=== PATIENT | male | born 1950 | race American Indian/Alaskan Native ===

== ENCOUNTER 2017-02-16 10:37 | Emergency (ER) | payer MEDICARE ==
[2017-02-16 11:15] VITALS: BP 166/71
--- NOTE | 2017-02-16 12:52 | Emergency Department Report ---
ED Upper Extremity Inj HPI - General Chief Complaint: Extremity Injury, Upper Stated Complaint: RIGHT ARM SWOLLEN Time Seen by Provider: 02/16/17 12:10 Source: patient Mode of arrival: Ambulatory Limitations: No Limitations - History of Present Illness Initial Comments: This is a 66-year-old male nontoxic, well nourished in appearance, no acute signs of distress presents to the ED complaining of chronic intermittent right wrist pain. Patient stated he was diagnosed with Gout and has been treated with steroids and Naproxen with relief. Patient today presents with same symptoms. Patient denies any trauma to the region. Patient denies any numbness, tingling , fever, vomiting, chest pain, shortness of breath, headache, stiff neck, abdominal pain. Denies any allergies. Medical history includes arthritis and gout. MD Complaint: Injury to:: right, wrist -: year(s) Other Extremity Injury: Wrist: Right Other Injuries: none Severity scale (0 -10): 6 Improves With: none Worsens With: none Associated Symptoms: denies other symptoms. denies: weakness, numbness, neck pain, suspects foreign body, nausea/vomiting, heard/felt popping sensat - Related Data Previous Rx's Medication Instructions Recorded Last Taken Type Levofloxacin [Levaquin] 750 mg PO QDAY #7 tablet 07/15/14 Unknown Rx oxyCODONE [Roxicodone TAB] 5 mg PO Q6H PRN #20 tablet 07/15/14 Unknown Rx Cyclobenzaprine [Flexeril] 10 mg PO TID PRN #20 tablet 11/04/15 Unknown Rx Naproxen [Naprosyn TAB] 375 mg PO BID #30 tablet 11/04/15 Unknown Rx Naproxen [Naprosyn TAB] 500 mg PO BID PRN #30 tablet 02/16/17 Unknown Rx predniSONE [Deltasone] 40 mg PO QDAY #5 tab 02/16/17 Unknown Rx Allergies Allergy/AdvReac Type Severity Reaction Status Date / Time No Known Allergies Allergy Verified 07/15/14 11:31 ED Review of Systems ROS: Stated complaint: RIGHT ARM SWOLLEN Other details as noted in HPI Constitutional: denies: chills, fever Eyes: denies: eye pain, eye discharge, vision change ENT: denies: ear pain, throat pain Respiratory: denies: cough, shortness of breath, wheezing Cardiovascular: denies: chest pain, palpitations Endocrine: no symptoms reported Gastrointestinal: denies: abdominal pain, nausea, diarrhea Genitourinary: denies: urgency, dysuria Musculoskeletal: denies: back pain, joint swelling, arthralgia Skin: denies: rash, lesions Neurological: denies: headache, weakness, paresthesias Psychiatric: denies: anxiety, depression Hematological/Lymphatic: denies: easy bleeding, easy bruising ED Past Medical Hx - Past Medical History Previous Medical History?: Yes Hx Arthritis: Yes Additional medical history: gout, carpel tunnel - Surgical History Past Surgical History?: No - Social History Smoking Status: Current Every Day Smoker Substance Use Type: Alcohol - Medications Home Medications: Home Medications Medication Instructions Recorded Confirmed Last Taken Type Levofloxacin [Levaquin] 750 mg PO QDAY #7 tablet 07/15/14 Unknown Rx oxyCODONE [Roxicodone TAB] 5 mg PO Q6H PRN #20 tablet 07/15/14 Unknown Rx Cyclobenzaprine [Flexeril] 10 mg PO TID PRN #20 tablet 11/04/15 Unknown Rx Naproxen [Naprosyn TAB] 375 mg PO BID #30 tablet 11/04/15 Unknown Rx Naproxen [Naprosyn TAB] 500 mg PO BID PRN #30 tablet 02/16/17 Unknown Rx predniSONE [Deltasone] 40 mg PO QDAY #5 tab 02/16/17 Unknown Rx ED Physical Exam - General Limitations: No Limitations General appearance: alert, in no apparent distress - Head Head exam: Present: atraumatic, normocephalic, normal inspection - Eye Eye exam: Present: normal appearance, PERRL, EOMI. Absent: scleral icterus, conjunctival injection, nystagmus, periorbital swelling, periorbital tenderness Pupils: Present: normal accommodation - ENT ENT exam: Present: normal exam, normal orophraynx, mucous membranes moist, TM's normal bilaterally, normal external ear exam - Neck Neck exam: Present: normal inspection, full ROM. Absent: tenderness, meningismus, lymphadenopathy, thyromegaly - Respiratory Respiratory exam: Present: normal lung sounds bilaterally. Absent: respiratory distress, wheezes, rales, rhonchi, stridor, chest wall tenderness, accessory muscle use, decreased breath sounds, prolonged expiratory - Cardiovascular Cardiovascular Exam: Present: regular rate, normal rhythm, normal heart sounds. Absent: bradycardia, tachycardia, irregular rhythm, systolic murmur, diastolic murmur, rubs, gallop - GI/Abdominal GI/Abdominal exam: Present: soft, normal bowel sounds. Absent: distended, tenderness, guarding, rebound, rigid, diminished bowel sounds - Rectal Rectal exam: Present: deferred - Extremities Exam Extremities exam: Present: normal inspection, full ROM, tenderness, normal capillary refill. Absent: pedal edema, joint swelling, calf tenderness - Expanded Upper Extremity Exam Right General: Present: normal inspection Shoulder Exam: Present: normal inspection, full ROM Upper Arm exam: Present: normal inspection, full ROM Elbow exam: Present: normal inspection, full ROM Forearm Wrist exam: Present: normal inspection, full ROM Hand Wrist exam: Present: normal inspection, full ROM, tenderness, swelling. Absent: abrasion, laceration, ecchymosis, deformity, crepidus, dislocation, erythema, amputation, nail avulsion, subungual hematoma Hand L/R Back: 1 - swelling and tenderness Neuro motor exam: Present: wrist extension intact, thumb opposition intact, thumb IP flexion intact, thumb adduction intact, fingers 2-5 abduction intact Neurosensory exam: Present: 2-point discrimination, radial nerve intact, ulnar nerve intact, median nerve intact Vascular: Present: vascular compromise, normal capillary refill, radial pulse, brachial pulse, ulnar pulse - Back Exam Back exam: Present: normal inspection, full ROM. Absent: tenderness, CVA tenderness (R), CVA tenderness (L), muscle spasm, paraspinal tenderness, vertebral tenderness, rash noted - Neurological Exam Neurological exam: Present: alert, oriented X3, CN II-XII intact, normal gait, reflexes normal - Psychiatric Psychiatric exam: Present: normal affect, normal mood - Skin Skin exam: Present: warm, dry, intact, normal color. Absent: rash ED Course Vital Signs 02/16/17 11:09 Temperature 98.4 F Pulse Rate 93 H Respiratory 18 Rate Blood Pressure 166/71 O2 Sat by Pulse 99 Oximetry - Reevaluation(s) Reevaluation #1: 02/16/17 12:56 Patient is speaking in full sentences with no signs of distress noted. ED Medical Decision Making - Medical Decision Making This is a 66-year-old male that presents with gout exacerbation. Patient received Solu-Medrol and ibuprofen ED. Patient discharged with naproxen and prednisone. Patient is stable. Patient was instructed to follow-up with a primary care doctor in 3-5 days or if symptoms worsen and continue return to emergency room as soon as possible possible. At time time of discharge, the patient does not seem toxic or ill in appearance. No acute signs of distress noted. Patient agrees to discharge treatment plan of care. No further questions noted by the patient. Critical care attestation.: If time is entered above; I have spent that time in minutes in the direct care of this critically ill patient, excluding procedure time. 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 Prescriptions: Naproxen [Naprosyn TAB] 500 mg PO BID PRN #30 tablet PRN Reason: Pain predniSONE [Deltasone] 40 mg PO QDAY #5 tab Referrals: ANTHONY TILLEY MD [Primary Care Provider] - 3-5 Days JENNI SHRESTHA MD [Staff Physician] - 3-5 Days [facility] [Outside] - 3-5 Days [facility] [Outside] - 3-5 Days Forms: Work/School Release Form(ED)
[2017-02-16] MEDS ORDERED: MOTRIN PO ONE (12:54)
== END 2017-02-16 13:11 | disposition home or self-care (01) ==
LOC: ED 10:37
DX: M1A.0310 Idiopathic chronic gout, right wrist, without tophus (tophi) (principal); M19.90 Unspecified osteoarthritis, unspecified site; M10.9 Gout, unspecified; F17.200 Nicotine dependence, unspecified, uncomplicated
CPT/HCPCS: 96372; 99282; J2930

== ENCOUNTER 2017-06-09 11:33 | Emergency (ER) | payer MEDICARE ==
--- NOTE | 2017-06-09 14:58 | XRay Report ---
RIGHT WRIST, 4 VIEWS: History: Swelling and pain. There is near-complete loss of joint space between the carpal bones. There is severe sclerosis and subchondral cysts. 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 There is no obvious fracture or dislocation. The distal radius and ulnar are grossly intact. IMPRESSION: Advanced, chronic degenerative findings as described.
[2017-06-09] MEDS ORDERED: INDOCIN PO ONE (16:27)
[2017-06-09] MEDS ORDERED: NORCO 5/325 PO ONE (16:29)
--- NOTE | 2017-06-09 17:26 | Emergency Department Report ---
Upper Extremity - HPI Chief Complaint: Extremity Problem,Nontraumatic Stated Complaint: SWOLLEN WRIST/GOUT Upper Extremity: Right Wrist Occurred When: 4 Days Mechanism: Unsure Severity: mild Symptoms: Yes Pain with Movement, Yes Limited Range of Movement, Yes Swelling, No Deformity, No Numbness, No Weakness, No Bruising/Ecchymosis, No Laceration or Abrasion Other History: 66 year old male presents to ED with right wrist swelling and pain x3-4 days. patient states he has history of gout and is not currently on any medication for gout. patient also states he has been drinking an increased amount of beer recently. patient is stable, neurologically intact and in no acute distress. ED Review of Systems ROS: Stated complaint: SWOLLEN WRIST/GOUT Other details as noted in HPI Constitutional: denies: chills, fever Eyes: denies: eye pain, eye discharge, vision change ENT: denies: ear pain, throat pain Respiratory: denies: cough, shortness of breath, wheezing Cardiovascular: denies: chest pain, palpitations Endocrine: no symptoms reported Gastrointestinal: denies: abdominal pain, nausea, diarrhea Genitourinary: denies: urgency, dysuria Musculoskeletal: joint swelling, arthralgia. denies: back pain Skin: denies: rash, lesions Neurological: denies: headache, weakness, numbness, paresthesias, confusion, abnormal gait, vertigo Psychiatric: denies: anxiety, depression Hematological/Lymphatic: denies: easy bleeding, easy bruising ED Past Medical Hx - Past Medical History Hx Arthritis: Yes Additional medical history: gout, carpel tunnel - Surgical History Past Surgical History?: No - Social History Smoking Status: Current Every Day Smoker Substance Use Type: Alcohol - Medications Home Medications: Home Medications Medication Instructions Recorded Confirmed Last Taken Type Levofloxacin [Levaquin] 750 mg PO QDAY #7 tablet 07/15/14 Unknown Rx oxyCODONE [Roxicodone TAB] 5 mg PO Q6H PRN #20 tablet 07/15/14 Unknown Rx Cyclobenzaprine [Flexeril] 10 mg PO TID PRN #20 tablet 11/04/15 Unknown Rx Naproxen [Naprosyn TAB] 375 mg PO BID #30 tablet 11/04/15 Unknown Rx Naproxen [Naprosyn TAB] 500 mg PO BID PRN #30 tablet 02/16/17 Unknown Rx predniSONE [Deltasone] 40 mg PO QDAY #5 tab 02/16/17 Unknown Rx Allopurinol 100 mg PO QAM #14 tablet 06/09/17 Unknown Rx Indomethacin [Indocin] 25 mg PO QAM #3 capsule 06/09/17 Unknown Rx Upper Extremity Exam - Exam General: Vital signs noted. No distress. Alert and acting appropriately. Head and Torso: No HEENT Abnormality, No Neck Tenderness, No Chest/Lungs Abnormality, No Abdominal Tenderness, No Back Tenderness Shoulder Exam: Yes Normal Range of Motion in Shoulder, No Shoulder Tenderness, No Clavicle Tenderness, No Shoulder Deformity, No AC Joint Tenderness Arm Exam: No Arm/Humerus Tenderness, No Arm Deformity Elbow: No Elbow Tenderness, No Normal Range of Motion in Elbow, No Elbow Deformity Forearm: No Forearm Tenderness, No Forearm Deformity, No Pain with Pronation, No Pain with Supination Wrist: Yes Wrist Tenderness, No Normal ROM in Wrist (decreased due to pain), No Wrist Deformity, No Snuffbox Tenderness, No Pain with Axial Thumb Compression Hand: Yes Normal ROM in Digit(s), No Hand Tenderness, No Hand Deformity, No Digit Tenderness, No Digit(s) Deformity, No Tendon Dysfunction CMS Exam: Yes Normal Distal Pulses, Yes Normal Capillary Refill, Yes Normal Distal Sensation, No Broken Skin ED Course Vital Signs 06/09/17 06/09/17 13:32 16:43 Temperature 97.9 F Pulse Rate 82 Respiratory 20 18 Rate Blood Pressure 157/51 O2 Sat by Pulse 96 Oximetry ED Medical Decision Making - Radiology Data Radiology results: report reviewed xr right wrist Advanced, chronic degenerative changes. no acute fracture or dislocation per radiologist. - Medical Decision Making 66 year old male presents to ED with right wrist pain and swelling x3-4 days. patient states this feels like his gout flare up. patient has no acute findings on imaging. patient has decreased pain after meds during ED visit. patient is stable, neurologically intact and in no acute distress. patient will be given PO prescriptions for gout. Critical care attestation.: If time is entered above; I have spent that time in minutes in the direct care of this critically ill patient, excluding procedure time. ED Disposition Clinical Impression: Gout attack Qualifiers: Gout site: wrist Gout etiology: other secondary cause Laterality: right Qualified Code(s): M10.431 - Other secondary gout, right wrist Disposition: TO HOME OR SELFCARE Is pt being admited?: No Does the pt Need Aspirin: No Condition: Stable Instructions: Acute Gouty Arthritis (ED) Prescriptions: Allopurinol 100 mg PO QAM #14 tablet Indomethacin [Indocin] 25 mg PO QAM #3 capsule Referrals: PRIMARY CARE, [Primary Care Provider] - 3-5 Days Forms: Work/School Release Form(ED)
[2017-06-09 17:44] VITALS: BP 158/82
== END 2017-06-09 17:43 | disposition home or self-care (01) ==
LOC: ED 11:33
DX: M10.431 Other secondary gout, right wrist (principal); F17.200 Nicotine dependence, unspecified, uncomplicated

== ENCOUNTER 2017-10-06 11:20 | Emergency (ER) | payer MEDICARE ==
[2017-10-06] MEDS ORDERED: CATAPRES PO ONE (13:09)
--- NOTE | 2017-10-06 13:11 | Emergency Department Report ---
Chief Complaint: Extremity Injury, Upper Stated Complaint: LEFT SHOULDER PAIN - HPI History of Present Illness: 67-year-old black male presents with a 2 day history of severe left shoulder pain. He has some decreased range of motion as he is unable to lift it above his shoulder level or above his head secondary to pain. 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 He has not taken anything for her symptoms. Presentation. He presents with her elevated blood pressure but denies any history of hypertension. He is right-hand dominant. - ROS Review of Systems: Positive for left shoulder pain. Negative for chest pain, shortness of breath, numbness, paresthesias, fever - Exam Vital Signs: Vital Signs 10/06/ 11:24 Temperature 99.4 F Pulse Rate 96 H Respiratory 18 Rate Blood Pressure 196/87 O2 Sat by Pulse 98 Oximetry Physical Exam: There is tenderness to palpation along the superior and anterior left shoulder but no obvious deformity. He is able to lift the arm up to about 80. Refill less than 2 seconds. Radial pulse +2 over 4. MSE screening note: Focused history and physical exam performed. Due to findings the following was ordered: Patient will be given some Catapres secondary to his elevated blood pressure. He will have an x-ray and be placed in a sling. ED Disposition for MSE Condition: Stable Referrals: PRIMARY CARE, [Primary Care Provider] - 3-5 Days
[2017-10-06] MEDS ORDERED: CATAPRES ONE ×2 (13:19)
--- NOTE | 2017-10-06 13:41 | Emergency Department Report ---
Upper Extremity - [facility] Chief Complaint: Extremity Injury, Upper Stated Complaint: LEFT SHOULDER PAIN Time Seen by Provider: 10/06/17 13:28 Upper Extremity: Left Shoulder (pain of unknown cause that is worse with movement) Occurred When: 2 Days Mechanism: Unsure Severity: severe (10/10 achy) Symptoms: Yes Pain with Movement (left shoulder), Yes Limited Range of Movement (left shoulder), No Deformity, No Numbness, No Weakness, No Swelling, No Bruising/Ecchymosis, No Laceration or Abrasion Other History: 67-year-old black male presents with a 2 day history of severe left shoulder pain. He has some decreased range of motion as he is unable to lift it above his shoulder level or above his head secondary to pain. 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 He has not taken anything for symptoms. He presents with elevated blood pressure but denies any history of hypertension. He is right-hand dominant. No alleviating factor pain better but pain is worse with movement. Associated with limited range of motion to left shoulder. Denies any blurred vision, nausea and vomiting, dizziness. ED Review of Systems ROS: Stated complaint: LEFT SHOULDER PAIN Other details as noted in HPI Constitutional: denies: chills, fever Eyes: denies: eye pain, eye discharge, vision change ENT: denies: ear pain, throat pain, congestion Respiratory: denies: cough, shortness of breath, SOB with exertion, SOB at rest , wheezing Cardiovascular: denies: chest pain, palpitations, dyspnea on exertion, edema, syncope, paroxysmal nocturnal dyspnea Gastrointestinal: denies: abdominal pain, nausea, vomiting, diarrhea, hematochezia Genitourinary: denies: urgency, dysuria Musculoskeletal: arthralgia. denies: back pain, joint swelling, myalgia Skin: denies: rash, lesions Neurological: denies: headache, weakness Hematological/Lymphatic: easy bleeding ED Past Medical Hx - Past Medical History Previous Medical History?: Yes Hx Arthritis: Yes Additional medical history: gout, carpel tunnel - Surgical History Past Surgical History?: No - Family History Family history: hypertension - Social History Smoking Status: Current Every Day Smoker Substance Use Type: Alcohol Other Social History: Single, works - Medications Home Medications: Home Medications Medication Instructions Recorded Confirmed Last Taken Type Levofloxacin [Levaquin] 750 mg PO QDAY #7 tablet 07/15/14 Unknown Rx oxyCODONE [Roxicodone TAB] 5 mg PO Q6H PRN #20 tablet 07/15/14 Unknown Rx Cyclobenzaprine [Flexeril] 10 mg PO TID PRN #20 tablet 11/04/15 Unknown Rx Naproxen [Naprosyn TAB] 375 mg PO BID #30 tablet 11/04/15 Unknown Rx Naproxen [Naprosyn TAB] 500 mg PO BID PRN #30 tablet 02/16/17 Unknown Rx predniSONE [Deltasone] 40 mg PO QDAY #5 tab 02/16/17 Unknown Rx Allopurinol 100 mg PO QAM #14 tablet 06/09/17 Unknown Rx Indomethacin [Indocin] 25 mg PO QAM #3 capsule 06/09/17 Unknown Rx Ibuprofen [Motrin] 600 mg PO Q8H PRN #15 tablet 10/06/17 Unknown Rx Upper Extremity Exam - Exam General: Vital signs noted. No distress. Alert and acting appropriately. This is a 67-year-old male well-nourished well-developed in no acute distress Head and Torso: No HEENT Abnormality (Normal exam), No Neck Tenderness (No cspine tenderness. FROM), No Chest/Lungs Abnormality (no CWT. lungs CTAB), No Abdominal Tenderness (NTTP in ALL quadrants, NL BS), No Back Tenderness (NO vertebral tenderness) Shoulder Exam: Yes Shoulder Tenderness (+ RT GHJ tenderness. No joint effusion , erythema or crepitus.), No Clavicle Tenderness (NTTP Bilateral), No Normal Range of Motion in Shoulder (FROM in all extremities except left shoulder were patient reports pain with passive and active range of motion.), No Shoulder Deformity, No AC Joint Tenderness Arm Exam: No Arm/Humerus Tenderness, No Arm Deformity Elbow: Yes Normal Range of Motion in Elbow, No Elbow Tenderness, No Elbow Deformity Forearm: No Forearm Tenderness, No Forearm Deformity, No Pain with Pronation, No Pain with Supination Wrist: Yes Normal ROM in Wrist, No Wrist Tenderness, No Wrist Deformity, No Snuffbox Tenderness, No Pain with Axial Thumb Compression Hand: Yes Normal ROM in Digit(s), No Hand Tenderness, No Hand Deformity, No Digit Tenderness, No Digit(s) Deformity, No Tendon Dysfunction CMS Exam: Yes Normal Distal Pulses (+2 pulses all extremities.), Yes Normal Capillary Refill, Yes Normal Distal Sensation, No Broken Skin ED Course Vital Signs 10/06/17 10/06/17 11:24 13:23 Temperature 99.4 F Pulse Rate 96 H 65 Respiratory 18 Rate Blood Pressure 196/87 193/79 O2 Sat by Pulse 98 Oximetry Vital Signs 10/06/1718 10/06/17 11:24 13:23 14:49 Temperature 99.4 F Pulse Rate 96 H 65 75 Respiratory 18 20 Rate Blood Pressure 196/87 193/79 Blood Pressure 167/91 [Right] O2 Sat by Pulse 98 98 Oximetry - Reevaluation(s) Reevaluation #1: 10/06/17 15:51 Patient given clonidine 0.1 mg when necessary emergency room for elevated blood pressure is 167/91. Patient denies any history of high blood pressure but positive family history. Patient asymptomatic with elevated blood pressure. He was also given [place] 5/3-5 one tablet and Motrin 800 mg by mouth in emergency room for left shoulder pain which relieved this pain. - Orthopedic Splinting/Casting Injury #1 Side: left Upper Extremity Injury Location: shoulder Upper Extremity Immobilizer: sling/shoulder immobilize Additional Comments: Patient with good color, sensation, movement and temperature to extremities, upper status post sling. ED Medical Decision Making - Radiology Data Radiology results: report reviewed Dr. Peters, radiologist reported via telephone due to radio system dysfunction. Patient with left shoulder x-ray 2 views showed no acute fracture dislocation but degenerative joint disease. - Medical Decision Making ED COURSE DX: 1:Arthralgia RT shoulder- Hydrocodone 5/325 mg 1 tab po and Motrin 800 mg po in ED Rt shoulder sling with resolution of Pain. 2: Osteoarthritis Rt shoulder Xray with negative FX/Dislocation or STS. per radiologist. Films reviewed. see report for details - will send home with anti-inflammatory - referral to orthopedist for further eval. -Educated on diagnosis, medication, RICE therapy, Sling, Medication 3: elevated BP in ED :Denies History of HTN: clonidine 0.1mg po x1 dose and BP better. -Educated on lifestyle modification, keeping log of BP daily and schedule pcp vist for eval. XRAY findings discussed with patient and he voiced understanding Patient discharge home in stable condition with prescription for naproxen and to call his PCP to schedule f/u visit to evaluate bp . Critical care attestation.: If time is entered above; I have spent that time in minutes in the direct care of this critically ill patient, excluding procedure time. ED Disposition Clinical Impression: Elevated blood-pressure reading without diagnosis of hypertension Degenerative joint disease of left shoulder Qualifiers: Osteoarthritis type: unspecified Qualified Code(s): M19.012 - Primary osteoarthritis, left shoulder Arthralgia Qualifiers: Joint pain location: shoulder Laterality: left Qualified Code(s): M25.512 - Pain in left shoulder Disposition: DC-01 TO HOME OR SELFCARE Is pt being admited?: No Does the pt Need Aspirin: No Condition: Stable Instructions: Hypertension (ED), Arthralgia (ED), RICE Therapy (ED) Additional Instructions: Please follow-up with Dr. Juarez orthopedic doctor as instructed for follow-up left shoulder pain. Take Motrin as prescribed Following discharge instruction in Rice therapy Prescriptions: Ibuprofen [Motrin] 600 mg PO Q8H PRN #15 tablet PRN Reason: Pain Referrals: PRIMARY MD TREVA [Primary Care Provider] - 10/11/17 RAMIN JUAREZ MD [Staff Physician] - 10/11/17 Forms: Work/School Release Form(ED)
[2017-10-06] MEDS ORDERED: NORCO 5/325 PO ONE (15:03)
[2017-10-06] MEDS ORDERED: MOTRIN PO ONE (15:03)
[2017-10-06] MEDS ORDERED: MOTRIN ONE ×2 (15:09)
[2017-10-06] MEDS ORDERED: NORCO 5/325 ONE ×2 (15:09)
[2017-10-06 16:31] VITALS: BP 154/91
== END 2017-10-06 16:29 | disposition home or self-care (01) ==
LOC: ED 11:20
DX: M19.012 Primary osteoarthritis, left shoulder (principal); M25.512 Pain in left shoulder; R03.0 Elevated blood-pressure reading, without diagnosis of hypertension; F17.200 Nicotine dependence, unspecified, uncomplicated

== ENCOUNTER 2017-11-28 19:01 | Emergency (ER) | payer MEDICARE ==
[2017-11-28 19:13] VITALS: BP 200/68
[2017-11-28] MEDS ORDERED: MOTRIN ONE (19:14)
[2017-11-28] MEDS ORDERED: MOTRIN PO ONE (19:18)
== END 2017-11-28 20:50 | disposition left against medical advice (07) ==
LOC: ED 19:01
DX: M79.89 Other specified soft tissue disorders (principal); Z53.21 Procedure and treatment not carried out due to patient leaving prior to being seen by health care provider

== ENCOUNTER 2018-01-25 13:16 | Emergency (ER) | payer MEDICARE ==
[2018-01-25 13:21] VITALS: BP 119/77
--- NOTE | 2018-01-25 14:37 | XRay Report ---
RIGHT SHOULDER, 3 VIEWS: HISTORY: Severe pain and decreased range of motion. Normal bone mineralization. No fracture, bone lesion, dislocation or ligamentous injury is identified. Mild osteoarthritic changes are noted at the acromioclavicular joint. Normal articulation at the glenohumeral joint. The soft tissues are unremarkable. IMPRESSION: Mild acromioclavicular osteoarthritis.
[2018-01-25] MEDS ORDERED: MOTRIN PO ONE (15:50)
--- NOTE | 2018-01-25 15:55 | Emergency Department Report ---
ED Upper Extremity Inj HPI - General Chief Complaint: Extremity Injury, Upper Stated Complaint: SHOULDER PAIN Time Seen by Provider: 01/25/18 15:48 Source: patient Mode of arrival: Ambulatory Limitations: No Limitations - History of Present Illness Initial Comments: This is a 67-year-old male nontoxic, well nourished in appearance, no acute signs of distress presents to the ED with c/o of right shoulder pain. Patient stated that he lifts heavy things at work. Patient denies any trauma. Patient denies any numbness, tingling, fever, chills, nausea, vomiting, chest pain, shortness of breath, headache, stiff neck. Patient denies any joint swelling or joint redness. Patient stated has some decreased range of motion due to pain. Patient denies any allergies. PMH includes arthritis. MD Complaint: Injury to:: right, shoulder -: week(s) (1) Other Extremity Injury: Shoulder: Right Other Injuries: none Place: work Severity scale (0 -10): 8 Improves With: immobilization Worsens With: movement of extremity Associated Symptoms: denies other symptoms. denies: weakness, numbness, neck pain, suspects foreign body, nausea/vomiting, heard/felt popping sensat - Related Data Previous Rx's Medication Instructions Recorded Last Taken Type levoFLOXacin [Levaquin] 750 mg PO QDAY #7 tablet 07/15/14 Unknown Rx oxyCODONE [Roxicodone TAB] 5 mg PO Q6H PRN #20 tablet 07/15/14 Unknown Rx Cyclobenzaprine [Flexeril] 10 mg PO TID PRN #20 tablet 11/04/15 Unknown Rx Naproxen [Naprosyn TAB] 375 mg PO BID #30 tablet 11/04/15 Unknown Rx Naproxen [Naprosyn TAB] 500 mg PO BID PRN #30 tablet 02/16/17 Unknown Rx predniSONE [Deltasone] 40 mg PO QDAY #5 tab 02/16/17 Unknown Rx Allopurinol 100 mg PO QAM #14 tablet 06/09/17 Unknown Rx Indomethacin [Indocin] 25 mg PO QAM #3 capsule 06/09/17 Unknown Rx Ibuprofen [Motrin] 600 mg PO Q8H PRN #15 tablet 10/06/17 Unknown Rx Cyclobenzaprine [Flexeril] 10 mg PO QHS PRN #10 tablet 01/25/18 Unknown Rx Ibuprofen [Motrin] 600 mg PO Q8H PRN #30 tablet 01/25/18 Unknown Rx Allergies Allergy/AdvReac Type Severity Reaction Status Date / Time No Known Allergies Allergy Verified 10/06/17 11:24 ED Review of Systems ROS: Stated complaint: SHOULDER PAIN Other details as noted in HPI Constitutional: denies: chills, fever Eyes: denies: eye pain, eye discharge, vision change ENT: denies: ear pain, throat pain Respiratory: denies: cough, shortness of breath, wheezing Cardiovascular: denies: chest pain, palpitations Endocrine: no symptoms reported Gastrointestinal: denies: abdominal pain, nausea, diarrhea Genitourinary: denies: urgency, dysuria Musculoskeletal: denies: back pain, joint swelling, arthralgia Skin: denies: rash, lesions Neurological: denies: headache, weakness, paresthesias Psychiatric: denies: anxiety, depression Hematological/Lymphatic: denies: easy bleeding, easy bruising ED Past Medical Hx - Past Medical History Hx Arthritis: Yes Additional medical history: gout, carpel tunnel - Surgical History Past Surgical History?: No - Social History Smoking Status: Current Every Day Smoker Substance Use Type: Alcohol - Medications Home Medications: Home Medications Medication Instructions Recorded Confirmed Last Taken Type levoFLOXacin [Levaquin] 750 mg PO QDAY #7 tablet 07/15/14 Unknown Rx oxyCODONE [Roxicodone TAB] 5 mg PO Q6H PRN #20 tablet 07/15/14 Unknown Rx Cyclobenzaprine [Flexeril] 10 mg PO TID PRN #20 tablet 11/04/15 Unknown Rx Naproxen [Naprosyn TAB] 375 mg PO BID #30 tablet 11/04/15 Unknown Rx Naproxen [Naprosyn TAB] 500 mg PO BID PRN #30 tablet 02/16/17 Unknown Rx predniSONE [Deltasone] 40 mg PO QDAY #5 tab 02/16/17 Unknown Rx Allopurinol 100 mg PO QAM #14 tablet 06/09/17 Unknown Rx Indomethacin [Indocin] 25 mg PO QAM #3 capsule 06/09/17 Unknown Rx Ibuprofen [Motrin] 600 mg PO Q8H PRN #15 tablet 10/06/17 Unknown Rx Cyclobenzaprine [Flexeril] 10 mg PO QHS PRN #10 tablet 01/25/18 Unknown Rx Ibuprofen [Motrin] 600 mg PO Q8H PRN #30 tablet 01/25/18 Unknown Rx ED Physical Exam - General Limitations: No Limitations General appearance: alert, in no apparent distress - Head Head exam: Present: atraumatic, normocephalic - Eye Eye exam: Present: normal appearance Pupils: Present: normal accommodation - ENT ENT exam: Present: normal exam, mucous membranes moist - Neck Neck exam: Present: normal inspection, full ROM - Respiratory Respiratory exam: Present: normal lung sounds bilaterally. Absent: respiratory distress - Cardiovascular Cardiovascular Exam: Present: regular rate, normal rhythm. Absent: systolic murmur, diastolic murmur, rubs, gallop - GI/Abdominal GI/Abdominal exam: Present: soft, normal bowel sounds - Rectal Rectal exam: Present: deferred - Extremities Exam Extremities exam: Present: normal inspection, full ROM, tenderness, normal capillary refill. Absent: joint swelling - Expanded Upper Extremity Exam Right General: Present: normal inspection Shoulder Exam: Present: normal inspection, full ROM, tenderness (deltoid muscle area). Absent: swelling, abrasion, laceration, ecchymosis, deformity, crepidus , dislocation, erythema, tenderness over AC joint Upper Arm exam: Present: normal inspection, full ROM. Absent: tenderness, swelling Elbow exam: Present: normal inspection, full ROM. Absent: tenderness, swelling Forearm Wrist exam: Present: normal inspection, full ROM. Absent: tenderness, swelling Hand Wrist exam: Present: normal inspection, full ROM. Absent: tenderness, swelling Neuro motor exam: Present: wrist extension intact, thumb opposition intact, thumb IP flexion intact, thumb adduction intact, fingers 2-5 abduction intact Neurosensory exam: Present: 2-point discrimination, radial nerve intact, ulnar nerve intact, median nerve intact Vascular: Present: vascular compromise, normal capillary refill - Back Exam Back exam: Present: normal inspection, full ROM. Absent: paraspinal tenderness , vertebral tenderness - Neurological Exam Neurological exam: Present: alert, oriented X3 - Psychiatric Psychiatric exam: Present: normal affect, normal mood - Skin Skin exam: Present: warm, dry, intact, normal color. Absent: rash ED Course Vital Signs 01/25/18 13:18 Temperature 98 F Pulse Rate 102 H Respiratory 20 Rate Blood Pressure 119/77 O2 Sat by Pulse 98 Oximetry - Reevaluation(s) Reevaluation #1: 01/25/18 15:53 Patient is speaking in full sentences with no signs of distress noted. ED Medical Decision Making - Medical Decision Making This is a 67-year-old male that presents with right shoulder strain vs. muscle strain. Patient is stable and was examined by me. I referred patient to an orthopedic doctor for further evaluation for possible MRI. X-ray has been obtained and dictated by the radiologist. Patient is notified of the x-ray report with noted by the patient. Patient does have normal gait with no tenderness and no joint swelling. No ecchymosis. no joint redness or swelling. Not warm to touch. No signs of cellulites present. Patient received a shoulder sling. Patient was instructed to RICE therapy. Patient received Motrin for pain. Patient is discharged with Motrin and Flexeril. At time of discharge, the patient does not seem toxic or ill in appearance. No acute signs of distress noted. Patient agrees to discharge treatment plan of care. No further questions noted by the patient. Critical care attestation.: If time is entered above; I have spent that time in minutes in the direct care of this critically ill patient, excluding procedure time. ED Disposition Clinical Impression: Right shoulder strain Qualifiers: Encounter type: initial encounter Qualified Code(s): S46.911A - Strain of unspecified muscle, fascia and tendon at shoulder and upper arm level, right arm , initial encounter Muscle strain of right shoulder Qualifiers: Encounter type: initial encounter Qualified Code(s): S46.911A - Strain of unspecified muscle, fascia and tendon at shoulder and upper arm level, right arm , initial encounter Disposition: - TO HOME OR SELFCARE Is pt being admited?: No Does the pt Need Aspirin: No Condition: Stable Instructions: Rotator Cuff Injury (ED), RICE Therapy (ED), Cyclobenzaprine (By mouth) Additional Instructions: Follow-up with a primary care doctor in 3-5 days or if symptoms worsen and continue return to emergency room as soon as possible. Take ibuprofen and Flexeril as prescribed. Do not operate heavy machinery while taking Flexeril due to sedation Prescriptions: Cyclobenzaprine [Flexeril] 10 mg PO QHS PRN #10 tablet PRN Reason: Muscle Spasm Ibuprofen [Motrin] 600 mg PO Q8H PRN #30 tablet PRN Reason: Pain Referrals: PRIMARY CARE, [Primary Care Provider] - 3-5 Days RAMIN FONSECA MD [Staff Physician] - 3-5 Days [facility] [Outside] - 3-5 Days Forms: Work/School Release Form(ED)
== END 2018-01-25 16:14 | disposition home or self-care (01) ==
LOC: ED 13:16
DX: S46.911A Strain of unspecified muscle, fascia and tendon at shoulder and upper arm level, right arm, initial encounter (principal); M19.90 Unspecified osteoarthritis, unspecified site; F17.200 Nicotine dependence, unspecified, uncomplicated; X50.0XXA Overexertion from strenuous movement or load, initial encounter; Y93.89 Activity, other specified; Y92.89 Other specified places as the place of occurrence of the external cause; Y99.8 Other external cause status

== ENCOUNTER 2018-05-20 09:16 | Emergency (ER) | payer MEDICARE ==
--- NOTE | 2018-05-20 11:05 | Emergency Department Report ---
ED Upper Extremity Inj HPI - General Chief Complaint: Pain General Stated Complaint: GOUT Time Seen by Provider: 05/20/18 10:45 Source: patient Mode of arrival: Ambulatory Limitations: No Limitations - History of Present Illness Initial Comments: 67-year-old male with history of gout presents with right hand and left middle finger pain since yesterday. Patient reports mild swelling. States he is having a flareup of his gout. Complaint: Injury to:: right, hand -: days(s) (1) Other Extremity Injury: Fingers: Left, Hand: Right Other Injuries: none Improves With: medication Worsens With: movement of extremity Context: other (hx of gout) Associated Symptoms: denies other symptoms - Related Data Previous Rx's Medication Instructions Recorded Last Taken Type levoFLOXacin [Levaquin] 750 mg PO QDAY #7 tablet 07/15/14 Unknown Rx oxyCODONE [Roxicodone TAB] 5 mg PO Q6H PRN #20 tablet 07/15/14 Unknown Rx Cyclobenzaprine [Flexeril] 10 mg PO TID PRN #20 tablet 11/04/15 Unknown Rx Naproxen [Naprosyn TAB] 375 mg PO BID #30 tablet 11/04/15 Unknown Rx Naproxen [Naprosyn TAB] 500 mg PO BID PRN #30 tablet 02/16/17 Unknown Rx predniSONE [Deltasone] 40 mg PO QDAY #5 tab 02/16/17 Unknown Rx Ibuprofen [Motrin] 600 mg PO Q8H PRN #15 tablet 10/06/17 Unknown Rx Cyclobenzaprine [Flexeril] 10 mg PO QHS PRN #10 tablet 01/25/18 Unknown Rx Ibuprofen [Motrin] 600 mg PO Q8H PRN #30 tablet 01/25/18 Unknown Rx Allopurinol 100 mg PO QAM #14 tablet 05/20/18 Unknown Rx Indomethacin [Indocin] 25 mg PO QAM #3 capsule 05/20/18 Unknown Rx Allergies Allergy/AdvReac Type Severity Reaction Status Date / Time No Known Allergies Allergy Verified 10/06/17 11:24 ED Review of Systems ROS: Stated complaint: GOUT Other details as noted in HPI Comment: All other systems reviewed and negative Constitutional: denies: chills, fever Musculoskeletal: as per HPI, joint swelling, arthralgia ED Past Medical Hx - Past Medical History Previous Medical History?: Yes Hx Arthritis: Yes (gout) Additional medical history: gout, carpel tunnel - Surgical History Past Surgical History?: No - Social History Smoking Status: Current Every Day Smoker Substance Use Type: Prescribed - Medications Home Medications: Home Medications Medication Instructions Recorded Confirmed Last Taken Type levoFLOXacin [Levaquin] 750 mg PO QDAY #7 tablet 07/15/14 Unknown Rx oxyCODONE [Roxicodone TAB] 5 mg PO Q6H PRN #20 tablet 07/15/14 Unknown Rx Cyclobenzaprine [Flexeril] 10 mg PO TID PRN #20 tablet 11/04/15 Unknown Rx Naproxen [Naprosyn TAB] 375 mg PO BID #30 tablet 11/04/15 Unknown Rx Naproxen [Naprosyn TAB] 500 mg PO BID PRN #30 tablet 02/16/17 Unknown Rx predniSONE [Deltasone] 40 mg PO QDAY #5 tab 02/16/17 Unknown Rx Ibuprofen [Motrin] 600 mg PO Q8H PRN #15 tablet 10/06/17 Unknown Rx Cyclobenzaprine [Flexeril] 10 mg PO QHS PRN #10 tablet 01/25/18 Unknown Rx Ibuprofen [Motrin] 600 mg PO Q8H PRN #30 tablet 01/25/18 Unknown Rx Allopurinol 100 mg PO QAM #14 tablet 05/20/18 Unknown Rx Indomethacin [Indocin] 25 mg PO QAM #3 capsule 05/20/18 Unknown Rx ED Physical Exam - General Limitations: No Limitations General appearance: alert, in no apparent distress - Head Head exam: Present: atraumatic, normocephalic - Eye Eye exam: Present: normal appearance - ENT ENT exam: Present: mucous membranes moist - Neck Neck exam: Present: normal inspection - Respiratory Respiratory exam: Present: normal lung sounds bilaterally. Absent: respiratory distress - Cardiovascular Cardiovascular Exam: Present: normal rhythm, tachycardia - GI/Abdominal GI/Abdominal exam: Present: soft. Absent: distended - Extremities Exam Extremities exam: Present: other (nild swelling to right hand, tenderness present; swelling and tenderness also noted to left middle finger) - Neurological Exam Neurological exam: Present: alert, oriented X3 - Psychiatric Psychiatric exam: Present: normal affect, normal mood - Skin Skin exam: Present: warm, dry, intact, normal color ED Course Vital Signs 05/20/18 09:32 Temperature 98 F Pulse Rate 105 H Respiratory 20 Rate Blood Pressure 138/81 O2 Sat by Pulse 96 Oximetry Critical care attestation.: If time is entered above; I have spent that time in minutes in the direct care of this critically ill patient, excluding procedure time. ED Disposition Clinical Impression: Gout attack Disposition: DC- TO HOME OR SELFCARE Is pt being admited?: No Condition: Stable Instructions: Acute Gouty Arthritis (ED) Prescriptions: Allopurinol 100 mg PO QAM #14 tablet Indomethacin [Indocin] 25 mg PO QAM #3 capsule Referrals: PRIMARY CARE, [Primary Care Provider] - 3-5 Days [facility] [Provider Group] - 3-5 Days Time of Disposition: 11:08
== END 2018-05-20 11:43 | disposition home or self-care (01) ==
LOC: ED 09:16
CPT/HCPCS: 99282

== ENCOUNTER 2018-11-23 13:42 | Emergency (ER) | payer MEDICARE ==
[2018-11-23 14:13] VITALS: BP 169/66
--- NOTE | 2018-11-23 14:16 | Emergency Department Report ---
ED Extremity Problem HPI - General Chief complaint: Extremity Injury, Upper Stated complaint: GOUT FLARE UP Time Seen by Provider: 11/23/18 14:11 Source: patient Mode of arrival: Ambulatory Limitations: No Limitations - History of Present Illness Initial comments: pt is a 68 yo male who presents for a gout flare he states it began a couple of days ago. states that he has pain in his right wrist and left foot, left middle finger, and neck pain. he does not have a PCP. states he comes to the ER for his gout. he denies any other medical problems. no allergies to meds. states he gets gout in different areas. no fever, no N/V/D. no fall or injury. no numbness or weakness. no hx of history DM. - Related Data Previous Rx's Medication Instructions Recorded Last Taken Type levoFLOXacin [Levaquin] 750 mg PO QDAY #7 tablet 07/15/14 Unknown Rx oxyCODONE [roxiCODONE] 5 mg PO Q6H PRN #20 tablet 07/15/14 Unknown Rx Cyclobenzaprine [Flexeril] 10 mg PO TID PRN #20 tablet 11/04/15 Unknown Rx Naproxen [Naprosyn TAB] 375 mg PO BID #30 tablet 11/04/15 Unknown Rx predniSONE [Deltasone] 40 mg PO QDAY #5 tab 02/16/17 Unknown Rx Ibuprofen [Motrin] 600 mg PO Q8H PRN #15 tablet 10/06/17 Unknown Rx Cyclobenzaprine [Flexeril] 10 mg PO QHS PRN #10 tablet 01/25/18 Unknown Rx Ibuprofen [Motrin] 600 mg PO Q8H PRN #30 tablet 01/25/18 Unknown Rx Allopurinol 100 mg PO QAM #14 tablet 05/20/18 Unknown Rx Indomethacin [Indocin] 25 mg PO QAM #3 capsule 05/20/18 Unknown Rx Acetaminophen/Codeine [Tylenol 1 tab PO Q6H PRN #7 tab 11/23/18 Unknown Rx /Codeine # 3 tab] Colchicine 0.6 mg PO DAILY 1 Days #3 capsule 11/23/18 Unknown Rx Naproxen [Naprosyn TAB] 500 mg PO BID PRN #20 tablet 11/23/18 Unknown Rx predniSONE [Deltasone] 30 mg PO QDAY 5 Days #15 tab 11/23/18 Unknown Rx Allergies Allergy/AdvReac Type Severity Reaction Status Date / Time No Known Allergies Allergy Verified 11/23/18 13:43 ED Review of Systems ROS: Stated complaint: GOUT FLARE UP Other details as noted in HPI Comment: All other systems reviewed and negative ED Past Medical Hx - Past Medical History Hx Arthritis: Yes (gout) Additional medical history: carpel tunnel - Social History Smoking Status: Current Every Day Smoker Substance Use Type: Prescribed - Medications Home Medications: Home Medications Medication Instructions Recorded Confirmed Last Taken Type levoFLOXacin [Levaquin] 750 mg PO QDAY #7 tablet 07/15/14 Unknown Rx oxyCODONE [roxiCODONE] 5 mg PO Q6H PRN #20 tablet 07/15/14 Unknown Rx Cyclobenzaprine [Flexeril] 10 mg PO TID PRN #20 tablet 11/04/15 Unknown Rx Naproxen [Naprosyn TAB] 375 mg PO BID #30 tablet 11/04/15 Unknown Rx predniSONE [Deltasone] 40 mg PO QDAY #5 tab 02/16/17 Unknown Rx Ibuprofen [Motrin] 600 mg PO Q8H PRN #15 tablet 10/06/17 Unknown Rx Cyclobenzaprine [Flexeril] 10 mg PO QHS PRN #10 tablet 01/25/18 Unknown Rx Ibuprofen [Motrin] 600 mg PO Q8H PRN #30 tablet 01/25/18 Unknown Rx Allopurinol 100 mg PO QAM #14 tablet 05/20/18 Unknown Rx Indomethacin [Indocin] 25 mg PO QAM #3 capsule 05/20/18 Unknown Rx Acetaminophen/Codeine [Tylenol 1 tab PO Q6H PRN #7 tab 11/23/18 Unknown Rx /Codeine # 3 tab] Colchicine 0.6 mg PO DAILY 1 Days #3 capsule 11/23/18 Unknown Rx Naproxen [Naprosyn TAB] 500 mg PO BID PRN #20 tablet 11/23/18 Unknown Rx predniSONE [Deltasone] 30 mg PO QDAY 5 Days #15 tab 11/23/18 Unknown Rx ED Physical Exam - General Limitations: No Limitations General appearance: alert, in no apparent distress - Head Head exam: Present: atraumatic, normocephalic - Eye Eye exam: Present: normal appearance, PERRL - ENT ENT exam: Present: mucous membranes moist - Neck Neck exam: Present: normal inspection, full ROM. Absent: tenderness - Extremities Exam Extremities exam: Present: other (edema and increased warmth in the right wrist with TTP, slightly decreased ROM of the right wrist secondary to edema, 2+ radial pulse, no erythema, edema present to the left middle finger PIP joint, FROM of the left middle finger, 2+ radial pulse, left foot with no edema, no TTP, FROM of the left foot, neurovascularly intact throughout) - Neurological Exam Neurological exam: Present: alert, oriented X3 - Psychiatric Psychiatric exam: Present: normal affect, normal mood - Skin Skin exam: Present: warm, dry, intact ED Course Vital Signs 11/23/18 14:11 Temperature 98.4 F Pulse Rate 103 H Respiratory 18 Rate Blood Pressure 169/66 [Right] O2 Sat by Pulse 96 Oximetry ED Medical Decision Making - Medical Decision Making pt is a 68 yo male who presents for a gout flare he states it began a couple of days ago. states that he has pain in his right wrist and left foot, left middle finger, and neck pain. he does not have a PCP. states he comes to the ER for his gout. he denies any other medical problems. no allergies to meds. states he gets gout in different areas. no fever, no N/V/D. no fall or injury. no numbness or weakness. no hx of history DM. examination consistent with an acute gout flare of the right wrist and left middle finger, unlikely to be septic joint given multiple sites and afebrile and still has ability to move the joint. pt given naproxen, steroids, tylenol #3, and colchicine. advised pt to take medication as prescribed. discussed with pt do not drive or operate heavy machinery while taking pain medication. follow up with a primary care doctor in the next 2-3 days listed several below. return to the emergency room for any new or worsening symptoms. Critical care attestation.: If time is entered above; I have spent that time in minutes in the direct care of this critically ill patient, excluding procedure time. ED Disposition Clinical Impression: Gout Qualifiers: Gout site: multiple sites Gout etiology: unspecified cause Chronicity: acute Qualified Code(s): M10.9 - Gout, unspecified Disposition: - TO HOME OR SELFCARE Is pt being admited?: No Does the pt Need Aspirin: No Condition: Stable Instructions: Acute Gouty Arthritis (ED) Additional Instructions: please take medication as prescribed. do not drive or operate heavy machinery while taking pain medication. follow up with a primary care doctor in the next 2-3 days listed several below. return to the emergency room for any new or worsening symptoms. Prescriptions: Colchicine 0.6 mg PO DAILY 1 Days #3 capsule predniSONE [Deltasone] 30 mg PO QDAY 5 Days #15 tab Naproxen [Naprosyn TAB] 500 mg PO BID PRN #20 tablet PRN Reason: Pain Acetaminophen/Codeine [Tylenol /Codeine # 3 tab] 1 tab PO Q6H PRN #7 tab PRN Reason: Pain , Severe (7-10) Referrals: LORENE HERNANDEZLAFAYETTE MD SHAMEKA [Primary Care Provider] - 2-3 Days [facility] [Provider Group] - 2-3 Days [facility] [Provider Group] - 2-3 Days DADA SALGUERO MD [Referring] - 2-3 Days NIRANJAN JOSE MD [Staff Physician] - 2-3 Days Time of Disposition: 14:23 Print Language: WELSH
== END 2018-11-23 14:34 | disposition home or self-care (01) ==
LOC: ED 13:42
DX: M10.9 Gout, unspecified (principal); F17.200 Nicotine dependence, unspecified, uncomplicated; Z79.899 Other long term (current) drug therapy
CPT/HCPCS: 99282